=== PATIENT | male | born 1960 | race African-American/Black ===

== ENCOUNTER 2017-08-12 08:57 | Emergency (ER) | payer OTHER | END 2017-08-12 10:06 | disposition home or self-care (01) | LOC: ERS 08:57 | DX: H66.41 Suppurative otitis media, unspecified, right ear (principal); K74.60 Unspecified cirrhosis of liver | CPT/HCPCS: 99282 ==

== ENCOUNTER 2018-03-17 14:52 | Emergency (ER) | payer OTHER | END 2018-03-17 16:15 | disposition home or self-care (01) | LOC: ERS 14:52 | DX: J30.9 Allergic rhinitis, unspecified (principal); K74.60 Unspecified cirrhosis of liver | CPT/HCPCS: 99283 ==

== ENCOUNTER 2018-06-07 09:46 | Emergency (ER) | payer OTHER | END 2018-06-07 10:35 | disposition home or self-care (01) | LOC: ERS 09:46 | DX: Z00.00 Encounter for general adult medical examination without abnormal findings (principal); K74.60 Unspecified cirrhosis of liver; Z79.899 Other long term (current) drug therapy | CPT/HCPCS: 99283 ==

== ENCOUNTER 2018-07-19 02:24 | Emergency (ER) | payer OTHER | END 2018-07-19 02:51 | disposition home or self-care (01) | LOC: ERS 02:24 | DX: H65.91 Unspecified nonsuppurative otitis media, right ear (principal); K74.60 Unspecified cirrhosis of liver | CPT/HCPCS: 99282 ==

== ENCOUNTER 2018-09-14 10:53 | Emergency (ER) | payer OTHER ==
[2018-09-14 11:37] LABS: Hemoglobin 11.9 g/dL (14.0-18.0); Mean Corpuscular HGB CONC 32.2 g/dL (32.0-36.0); Mean Corpuscular Hemoglobin 37.3 pg (27.0-31.0); Mean Platelet Volume 13.3 fL (7.4-10.4); Platelet Count 32 thou/uL (130-400); RBC Distribution Width 16.1 % (11.5-14.5); Red Blood Cell (RBC) Count 3.18 mill/uL (4.70-6.10); White Blood Cell (WBC) Count 4.3 thou/uL (4.8-10.8)
[2018-09-14 11:38] LABS: #Eosinphils 0.1 thou/uL (0.0-0.7); #Lymphocytes 1.6 thou/uL (1.20-3.40); #Monocytes 0.5 thou/uL (0.11-0.59); %Basophils 0.5 % (0.0-1.0); %Eosinophils 2.6 % (0.0-10.0); %Lymphocytes 37.2 % (21.0-51.0); %Monocytes 12.7 % (0.0-10.0)
[2018-09-14] MEDS ORDERED: Meclizine HCl 25 MG TAB ONE (11:49)
[2018-09-14 11:58] LABS: INR-International Normal Ratio 1.5; Prothrombin Time 17.8 SEC (12.0-14.7)
[2018-09-14 11:59] LABS: PTT 29.3 SEC (22.9-36.1)
[2018-09-14 12:03] LABS: ALT (SGPT) 135 U/L (8-55); AST (SGOT) 245 U/L (5-34); Albumin 2.1 g/dL (3.5-5.0); Alkaline Phosphatase 103 U/L (40-150); Anion Gap 13 mmol/L (10-20); BUN (Urea Nitrogen) 10 mg/dL (8.4-25.7); Bilirubin, Total 3.1 mg/dL (0.2-1.2); Calc. Creatinine Clearance 0 mL/min (70-130); Calcium 8.1 mg/dL (7.8-10.44); Carbon Dioxide 19 mmol/L (22-29); Chloride 108 mmol/L (98-107); Estimated GFR-MDRD Greater than 90; Globulin 5.4 g/dL (2.4-3.5); Glucose 70 mg/dL (70-105); Potassium 3.5 mmol/L (3.5-5.1); Protein, Total 7.5 g/dL (6.0-8.3); Sodium 136 mmol/L (136-145)
[2018-09-14 12:06] LABS: CKMB 2.8 ng/mL (0-6.6); Troponin I Less than 0.010 ng/mL (< 0.028)
--- NOTE | 2018-09-14 12:07 | RAD ---
PORTABLE CHEST 1 VIEW: DATE: 09/14/2018. TIME: 11:15 a.m. HISTORY: Dizziness, shortness of breath, and weakness. FINDINGS: The heart size is normal. The lungs are expanded without focal areas of consolidation, pneumothorax, or pleural effusions. IMPRESSION: No radiographic evidence of acute cardiopulmonary process. POS: [facility]
[2018-09-14 12:18] LABS: MDiff Complete? YES; Macrocytosis MARKED = >30 cells (100X) (0-5/hpf); PLT Morphology Comment Appears Decreased; Polychromasia SLIGHT = 2-3 cells (100X) (0-2/hpf); Reflex for Review?? NO; Target Cells SLIGHT = 2-5 cells (100X) (0-1/hpf)
--- NOTE | 2018-09-14 12:35 | CT ---
CT BRAIN NONCONTRAST: HISTORY: A 58-year-old male with lightheadedness, dizziness, and generalized weakness. FINDINGS: There is no midline shift or any other mass effect. There is no evidence of acute intracranial hemor rhage, large cortical infarct, obstructive hydrocephalus, or extraaxial fluid collection. The calvar ium is intact. IMPRESSION: No acute intracranial findings. jn [] POS: [facility]
--- NOTE | 2018-09-15 17:21 | EKG ---
Test Reason : SOB Blood Pressure : / mmHG Vent. Rate : 089 BPM Atrial Rate : 089 BPM P-R Int : 124 ms QRS Dur : 084 ms QT Int : 398 ms P-R-T Axes : 068 009 046 degrees QTc Int : 484 ms Normal sinus rhythm Minimal voltage criteria for LVH, may be normal variant Prolonged QT Abnormal ECG Confirmed by RADHA MOISE, AYSHA ([id number]), publications editor WILLEM MONTOYA ([id number]) on 09/15/2018 5:20:42 PM Referred By: Confirmed By:AYSHA GARCIA MD
== END 2018-09-14 13:45 | disposition home or self-care (01) ==
LOC: ERS 10:53
DX: R42 Dizziness and giddiness (principal)
CPT/HCPCS: 70450; 71045; 80053; 82553; 84484; 85025; 85610; 85730; 93005; 96360; 96361

== ENCOUNTER 2019-01-06 16:06 | Emergency (ER) | payer OTHER ==
[2019-01-06] MEDS ORDERED: Ketorolac Tromethamine 30 MG/ML VIAL ONE (16:27)
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
== END 2019-01-06 17:07 | disposition home or self-care (01) ==
LOC: ERS 16:06
DX: S16.1XXA Strain of muscle, fascia and tendon at neck level, initial encounter (principal); F17.220 Nicotine dependence, chewing tobacco, uncomplicated; V44.5XXA Car driver injured in collision with heavy transport vehicle or bus in traffic accident, initial encounter
CPT/HCPCS: 72040; 96372; J1885

== ENCOUNTER 2019-06-03 09:41 | Emergency (ER) | payer OTHER | END 2019-06-03 10:35 | disposition home or self-care (01) | LOC: ERS 09:41 | DX: M54.5 Low back pain (principal); G89.29 Other chronic pain; F17.220 Nicotine dependence, chewing tobacco, uncomplicated; K74.60 Unspecified cirrhosis of liver; Z79.899 Other long term (current) drug therapy | CPT/HCPCS: 99281 ==

== ENCOUNTER 2019-08-04 19:51 | Emergency (ER) | payer OTHER ==
[2019-08-04] MEDS ORDERED: HYDROcodone/Acetaminophen 5/325 mg Tablet ONE (21:22)
--- NOTE | 2019-08-04 22:08 | RAD ---
LUMBAR SPINE: 08/04/19 Three views. HISTORY: Back pain. Lumbar vertebrae maintain height and alignment. Degenerative changes at L4-5 and L5-S1 with disc narr owing and hypertrophic spurring. No evidence of spondylolisthesis. IMPRESSION: Degenerative changes at L4-5 and L5-S1. POS: [facility]
== END 2019-08-04 22:35 | disposition home or self-care (01) ==
LOC: ERS 19:51
DX: S39.012A Strain of muscle, fascia and tendon of lower back, initial encounter (principal); K74.60 Unspecified cirrhosis of liver; F17.220 Nicotine dependence, chewing tobacco, uncomplicated; Z86.19 Personal history of other infectious and parasitic diseases; W01.0XXA Fall on same level from slipping, tripping and stumbling without subsequent striking against object, initial encounter
CPT/HCPCS: 72100

== ENCOUNTER 2019-10-02 15:00 | Emergency (ER) | payer OTHER | END 2019-10-02 17:20 | disposition home or self-care (01) | LOC: ERS 15:00 | DX: M26.601 Right temporomandibular joint disorder, unspecified (principal); F17.220 Nicotine dependence, chewing tobacco, uncomplicated | CPT/HCPCS: 99282 ==